=== PATIENT | female | born 1990 | race Caucasian/White ===

== ENCOUNTER 2016-05-21 21:02 | Emergency (ER) | payer OTHER ==
[~2016-05-21] VITALS: Ht 167.6 cm; Wt 49.9 kg
[2016-05-21 21:05] VITALS: BP 90/41
--- NOTE | 2016-05-21 22:23 | PHYS DOC ---
General Chief Complaint: BACK PAIN OR INJURY Stated Complaint: BACK PAIN 5 MOS Time Seen by MD: 22:05 Source: patient, family Problems: History of Present Illness Initial Comments Patient with mother for back pain. Patient states pain started earlier this evening when she was laying on the couch. She notes no history of injury or trauma. She has been lifting her child at home, is done no other heavy lifting or exertion. She says the pain is located in the right flank and low back area and seems to be increasing as the evening goes on. She describes it as a sharp and pulling feeling. Says she's never had pain like this before. She had no fever or chills with this. There is no runny nose or sore throat. There is no chest pain or shortness of breath. There is no nausea vomiting or abdominal pain. There is no change amount of bladder habits no vaginal bleeding or discharge. She is known to be 20 weeks . She denies any acute focal extremity or neurologic complaints. No weakness numbness or tingling within the lower extremity. Patient barely spoke with her own physician on posterior advised her to come the ER for further evaluation. Patient's really done nothing at home for this. She does note that seems to be worse when she moves her right leg around, for example having a fall over and lifting it back up on the bed. There is no other increasing or decreasing factors noted other than it hurts more when she lies flat. She's been using an ice pack here in the ED. Patient's past medical history is otherwise unremarkable. She is Ab0. She is a nonsmoker and nonuser of ethanol. Allergies: Coded Allergies: No Known Drug Allergies (Unverified , 05/21/16) Past Medical History Medical History: no pertinent history Social History Smoker: non-smoker Alcohol: none Review of Systems All Other Systems: Reviewed and Negative Physical Exam General Appearance: WD/WN, no apparent distress Neck: full range of motion, supple, normal inspection Respiratory: lungs clear, normal breath sounds, no respiratory distress Cardiovascular: regular rate, rhythm, no edema Gastrointestinal: non tender, soft, no organomegaly Back: no vertebral tenderness, other Extremities: non-tender, normal inspection, no pedal edema Neurologic/Psychiatric: alert, normal mood/affect, oriented x 3 Skin: normal color Lymphatic: no adenopathy Comments Generally this is a thin white female in no acute distress. Vitals are as noted. Pertinent findings on physical exam shows a chest clear. Cardiac exam shows regular rate and rhythm without murmur. The abdomen is soft and nontender. Fundus is palpable at the level of the umbilicus consistent with dates. There is no organomegaly. Back shows some erythema around the right low lumbar paraspinal region. Patient has been grabbing the area and has been keeping an ice pack there. Family and patient not seen this redness before. There is no signs of trauma. There is no vertebral tenderness. There is no sacroiliac or specific CVA tenderness. Latanya show no rash cyanosis or edema. Lower extremities DTRs 1+ or 4+ equal bilaterally. Strength 5 over 5 = system. There are no gross sensory deficits. Straight leg raising is minimally positive on the right. Neurologic exam finds patient awake alert mildly anxious but oriented and cooperative. Remainder of physical exam is clinically unremarkable. Orders, Labs, Meds Old charts note no prior ER visits within the current system. Labs today are clinically unremarkable. There is no evidence of UTI or hematuria. heart tones were noted to be approximately 150 and strong per nursing staff. Ultrasound of the right flank area shows moderate to severe right hydronephrosis of uncertain cause. Extrinsic compression of the right ureter by gravid uterus is possible, but distal stone cannot be excluded per radiology. 0010 Patient resting comfortably in the ED. Should be noted the patient and family been somewhat difficult for nursing staff over the course of the evening. They do seem somewhat "on edge" in our interactions, but they have been cordial. Her main concern at time of my initial evaluation seen to be the fact that she cannot turn the television. I discussed the workup findings with the patient and her mother. I discussed with her that it seems the most likely cause of her discomfort probably is compression of the ureter from the gravid uterus. She has no distinct injury history of injury or trauma to suggest back strain. There is no evidence of UTI no evidence of hematuria which would suggest current or past renal stone. Patient says is actually feeling better now , and she seemed to get better when she is laying on her left side during ultrasound. I discussed with her that at this point, not sure there is anything more that needs to be done. Certainly doesn't appear to be anything ongoing would require further hospitalization or inpatient care, and she appears to be resting quite comfortably. We discussed home care including rest, increasing fluids, warm compresses to the area, and laying to the left side. The mother asked about heating pads, and I advised against this because prolonged use can lead to alexis. I suggested they can or moist Margaret microwave which cough, and she can also use icy hot patches. She may also use Tylenol as needed for pain. They're concerned because she has tried to call her Wednesday, if she feels up to I don't see why she would not be able to do so. She does voiced understanding need to continue to follow-up with her medical device sales for care or return to the ER sooner as needed if worsening anyway. I did explain this is not a definitive diagnosis, but based on her history and exam findings I think this is the most reasonable assessment. They voice understanding of this and certainly. She looks well, in no acute discomfort distress, improved at this time, and okay for discharge home with mother. KLEBER BIRMINGHAM MD May 21, 2016 22:23
[2016-05-21 23:24] LABS: BASO % 0 % (0-3); EOS % 0 % (0-3); HEMATOCRIT 35.2 % (36.0-47.0); HEMOGLOBIN 12.1 g/dL (12.0-15.5); LYMPH # 1.6 x10^3/uL (1.0-4.8); LYMPH % 20 % (24-48); MEAN CORPUSCULAR HEMOGLOBIN 31 pg (25-35); MEAN CORPUSCULAR HGB CONC 34 g/dL (31-37); MEAN CORPUSCULAR VOLUME 89 fL (79-100); MONO # 0.4 x10^3/uL (0.0-1.1); MONO % 5 % (0-9); NEUT % 74 % (31-73); PLATELET COUNT 231 x10^3/uL (140-400); RED BLOOD COUNT 3.94 x10^6/uL (3.50-5.40); RED CELL DISTRIBUTION WIDTH 13.4 % (11.5-14.5); WHITE BLOOD COUNT 8.1 x10^3/uL (4.0-11.0)
[2016-05-21 23:33] LABS: ALBUMIN 3.1 g/dL (3.4-5.0); ALBUMIN/GLOBULIN RATIO 0.8 (1.0-1.7); CALCIUM 8.4 mg/dL (8.5-10.1); CREATININE 0.6 mg/dL (0.6-1.0); POTASSIUM 3.8 mmol/L (3.5-5.1); TOTAL BILIRUBIN 0.3 mg/dL (0.2-1.0); TOTAL PROTEIN 6.8 g/dL (6.4-8.2)
[2016-05-21 23:34] LABS: AMORPHOUS SEDIMENT,UR PRESENT /HPF; BACTERIA,URINE FEW /HPF (0-FEW); BILIRUBIN,URINE NEG (NEG); CLARITY,URINE HAZY; COLOR,URINE YELLOW; GLUCOSE,URINE NEG (NEG); NITRITE,URINE NEG (NEG); RBC,URINE OCC /HPF (0-2); SQUAMOUS EPITHELIAL CELL,UR FEW /LPF; UROBILINOGEN,URINE 0.2 mg/dL (0.2 mg/dL); WBC,URINE OCC /HPF (0-4)
[2016-05-21] MEDS ORDERED: ACETAMINOPHEN 500 MG TABLET PO ONE (23:45)
--- NOTE | 2016-05-21 23:56 | RAD ---
PROCEDURE Right renal ultrasound HISTORY Right flank pain. TECHNIQUE Transabdominal imaging was performed. COMPARISON None. FINDINGS Right kidney measures 13.5 centimeters in length. Moderate-severe right hydronephrosis is present. The dilated renal collecting system demonstrates presence of debris. Urinary bladder has unremarkable appearance. Both ureteral jets are seen. Cause of the right hydronephrosis is not confidently identified. IMPRESSION Moderate-severe right hydronephrosis. Exact cause is not identified. Extrinsic compression of the right ureter by a gravid uterus is possible. Distal obstructing stone cannot be excluded. The right renal collecting system of fluid demonstrates some internal echogenicity, compatible with debris. Electronically signed by: Jesus Donnelly MD (May 21, 2016 23:54:43)
== END 2016-05-22 00:35 | disposition home or self-care (01) ==
LOC: ER 21:02
DX: O26.892 Other specified pregnancy related conditions, second trimester (principal); N13.30 Unspecified hydronephrosis; Z3A.20 20 weeks gestation of pregnancy
CPT/HCPCS: 36415; 76775; 80053; 81001; 85027; 99285-25